=== PATIENT | male | born 1980 | race Hispanic/Latino ===

== ENCOUNTER 2020-07-24 02:43 | Inpatient (IN) | payer OTHER, SELFPAY ==
[2020-07-24] MEDS ORDERED: Boostrix 0.5 ML (Tdap) VIAL ONE (03:00)
[2020-07-24 03:06] LABS: #Basophils 0.1 thou/uL (0.0-0.2); #Eosinphils 0.1 thou/uL (0.0-0.7); #Lymphocytes 1.9 thou/uL (1.20-3.40); #Neutrophils 15.5 thou/uL (1.40-6.50); %Basophils 0.5 % (0.0-1.0); %Eosinophils 0.6 % (0.0-10.0); %Lymphocytes 10.3 % (21.0-51.0); %Monocytes 5.6 % (0.0-10.0); Hemoglobin 14.1 g/dL (14.0-18.0); Mean Corpuscular HGB CONC 33.9 g/dL (32.0-36.0); Mean Corpuscular Hemoglobin 31.8 pg (27.0-31.0); Mean Corpuscular Volume 93.7 fL (78.0-98.0); Mean Platelet Volume 11.4 fL (7.4-10.4); Platelet Count 175 thou/uL (130-400); RBC Distribution Width 12.4 % (11.5-14.5); Red Blood Cell (RBC) Count 4.44 mill/uL (4.70-6.10); White Blood Cell (WBC) Count 18.6 thou/uL (4.8-10.8)
[2020-07-24 03:08] LABS: Bilirubin Negative (Negative); Blood, Urine Large (Negative); Glucose, Urine (Dipstick) 500 mg/dL (Negative); Ketone, Urine Negative (Negative); Leukocyte Negative (Negative); Nitrite Negative (Negative); Protein, Urine (Dipstick) 30 mg/dL (Neg-Trace); Urobilinogen 0.2 mg/dL (Less than 2)
[2020-07-24 03:17] LABS: Squamous Epithelial 0-3 HPF (0-3); WBC/HPF 0-3 HPF (0-3)
[2020-07-24 03:17] LABS: ALT (SGPT) 273 U/L (8-55); AST (SGOT) 502 U/L (5-34); Albumin 3.6 g/dL (3.5-5.0); Alkaline Phosphatase 140 U/L (40-110); Anion Gap 21 mmol/L (10-20); BUN (Urea Nitrogen) 26 mg/dL (8.9-20.6); Bilirubin, Total 0.5 mg/dL (0.2-1.2); Calc. Creatinine Clearance 0 mL/min (70-130); Calcium 8.4 mg/dL (7.8-10.44); Carbon Dioxide 15 mmol/L (22-29); Chloride 104 mmol/L (98-107); Globulin 2.5 g/dL (2.4-3.5); Potassium 3.6 mmol/L (3.5-5.1); Protein, Total 6.1 g/dL (6.0-8.3); Sodium 136 mmol/L (136-145)
[2020-07-24 03:18] LABS: Bacteria/HPF 1+ HPF (None Seen); Clarity Clear (Clear)
[2020-07-24 03:26] LABS: Glucose 659 mg/dL (70-105)
[2020-07-24] MEDS ORDERED: Fentanyl 100 MCG/2 ML VIAL ONE (03:44)
[2020-07-24] MEDS ORDERED: Lidocaine 1% w/Epinephrine 1:100K 20 ML VIAL ONE (03:47)
[2020-07-24] MEDS ORDERED: Lidocaine 1% (PF) 30 ML VIAL ONE (05:06)
[2020-07-24] MEDS ORDERED: Electrolyte Replacement Protocol 1 EACH IVPB PRN (08:23)
[2020-07-24] MEDS ORDERED: NS 0.9% w/ 20 MEQ KCL 1,000 ML IV PRN ×2 (08:23)
[2020-07-24] MEDS ORDERED: D5 1/2 NS w/20 mEq KCL 1,000 ML IV PRN (08:23)
[2020-07-24] MEDS ORDERED: Dextrose 5 %-0.45 % NaCl 1,000 ML IV PRN (08:23)
[2020-07-24] MEDS ORDERED: Sodium Chloride 0.9% 1,000 ML IV PRN ×4 (08:23)
[2020-07-24] MEDS ORDERED: Sodium Chloride 0.9% 1,000 ML IV SCH (08:25)
[2020-07-24] MEDS ORDERED: Acetaminophen W/ Codeine 5 ML UDCUP PO PRN (08:25)
[2020-07-24] MEDS ORDERED: Ondansetron PF 4 MG/2 ML Vial IVP PRN (08:25)
[2020-07-24] MEDS ORDERED: Dextrose 5% in Water 1,000 ML IV PRN (08:25)
[2020-07-24] MEDS ORDERED: Cyclobenzaprine 10 MG TAB PO PRN (08:25)
[2020-07-24] MEDS ORDERED: Dextrose 50% Abboject 50 ML SYRINGE SLOW IVP PRN (08:25)
[2020-07-24] MEDS ORDERED: HumaLOG 300 UNITS/3 ML VIAL SC PRN ×2 (08:25)
[2020-07-24] MEDS ORDERED: Ondansetron ODT 4 MG TAB PO PRN (08:25)
[2020-07-24] MEDS ORDERED: Morphine 2 MG/ML VIAL SLOW IVP PRN (08:25)
[2020-07-24] MEDS ORDERED: hydrALAZINE 20 MG/ML VIAL SLOW IVP PRN (08:25)
[2020-07-24] MEDS ORDERED: HUMULIN R 100 UNITS in Sodium Chloride 0.9% 100 ML IVPB SCH (08:30)
[2020-07-24 08:35] LABS: Actual Bicarbonate (HCO3a) 16.6 mEq/L (22-28); Base Excess (BEa) -8.2 mEq/L (-2.0 to +3.0); CO2 Tension 32.4 mmHg (35.0-45.0); Calcium, Ionized (arterial) 1.21 mmol/L (1.12-1.30); Potassium - ABG Lab 4.45 mmol/L (3.70-5.30); pH, Arterial 7.33 (7.35-7.45)
[2020-07-24 08:36] LABS: Puncture Site RRA
[2020-07-24 09:49] LABS: Anion Gap 21 mmol/L (10-20); BUN (Urea Nitrogen) 27 mg/dL (8.9-20.6); Calc. Creatinine Clearance 0 mL/min (70-130); Calcium 9.5 mg/dL (7.8-10.44); Carbon Dioxide 18 mmol/L (22-29); Chloride 102 mmol/L (98-107); Phosphorus 4.5 mg/dL (2.3-4.7); Potassium 4.4 mmol/L (3.5-5.1); Sodium 137 mmol/L (136-145)
[2020-07-24] MEDS: Famotidine/PF 20 mg/2ml Vial SLOW IVP SCH ×2 (09:49→20:15)
[2020-07-24 10:00] LABS: Glucose 647 mg/dL (70-105)
[2020-07-24 10:38] VITALS: BMI 18.7
[2020-07-24] MEDS ORDERED: Magnesium 2 GM/50 ML 2 GM in Premix Bag 1 BAG IVPB SCH (10:45)
[2020-07-24] MEDS: Acetaminophen 650 MG/20.3 ML UDCUP PO SCH ×2 (12:00→18:49)
[2020-07-24 13:03] LABS: Anion Gap 19 mmol/L (10-20); BUN (Urea Nitrogen) 24 mg/dL (8.9-20.6); Calc. Creatinine Clearance 62 mL/min (70-130); Calcium 8.9 mg/dL (7.8-10.44); Carbon Dioxide 18 mmol/L (22-29); Chloride 109 mmol/L (98-107); Glucose 413 mg/dL (70-105); Sodium 142 mmol/L (136-145)
[2020-07-24 13:14] LABS: SARS-CoV-2 PCR by NAA Not Detected (NotDetected)
[2020-07-24] MEDS ORDERED: Iopamidol-370 76% 500 ML 1 ML ONE (13:33)
[2020-07-24] MEDS: Oxazepam 10 MG CAP PO SCH ×2 (14:18→22:25)
[2020-07-24 16:42] LABS: Anion Gap 14 mmol/L (10-20); BUN (Urea Nitrogen) 22 mg/dL (8.9-20.6); Calc. Creatinine Clearance 64 mL/min (70-130); Calcium 8.8 mg/dL (7.8-10.44); Carbon Dioxide 22 mmol/L (22-29); Chloride 111 mmol/L (98-107); Glucose 332 mg/dL (70-105); Potassium 4.5 mmol/L (3.5-5.1); Sodium 142 mmol/L (136-145)
[2020-07-24] MEDS: Clindamycin/D5W 900 MG in Premix Bag 1 BAG IVPB SCH (18:50)
[2020-07-24] MEDS: Chlorhexidine Gluconate 15 ML UDCUP SSP SCH (20:15)
[2020-07-25] MEDS: Acetaminophen 650 MG/20.3 ML UDCUP PO SCH ×5 (00:18→23:56)
[2020-07-25] MEDS: Clindamycin/D5W 900 MG in Premix Bag 1 BAG IVPB SCH ×3 (02:19→19:57)
[2020-07-25 03:17] LABS: #Basophils 0.1 thou/uL (0.0-0.2); #Eosinphils 0.2 thou/uL (0.0-0.7); #Lymphocytes 2.5 thou/uL (1.20-3.40); #Neutrophils 7.9 thou/uL (1.40-6.50); %Basophils 0.6 % (0.0-1.0); %Eosinophils 1.5 % (0.0-10.0); %Lymphocytes 21.5 % (21.0-51.0); %Monocytes 8.4 % (0.0-10.0); Hemoglobin 10.3 g/dL (14.0-18.0); Mean Corpuscular HGB CONC 34.7 g/dL (32.0-36.0); Mean Corpuscular Hemoglobin 32.6 pg (27.0-31.0); Mean Corpuscular Volume 93.8 fL (78.0-98.0); Mean Platelet Volume 11.2 fL (7.4-10.4); Platelet Count 120 thou/uL (130-400); RBC Distribution Width 12.8 % (11.5-14.5); Red Blood Cell (RBC) Count 3.16 mill/uL (4.70-6.10); White Blood Cell (WBC) Count 11.6 thou/uL (4.8-10.8)
[2020-07-25 03:38] LABS: Anion Gap 12 mmol/L (10-20); BUN (Urea Nitrogen) 16 mg/dL (8.9-20.6); Calc. Creatinine Clearance 113 mL/min (70-130); Calcium 7.9 mg/dL (7.8-10.44); Carbon Dioxide 19 mmol/L (22-29); Chloride 110 mmol/L (98-107); Glucose 158 mg/dL (70-105); Magnesium 1.9 mg/dL (1.6-2.6); Potassium 3.8 mmol/L (3.5-5.1); Sodium 137 mmol/L (136-145)
[2020-07-25 03:53] LABS: Phosphorus 2.9 mg/dL (2.3-4.7)
[2020-07-25] MEDS ORDERED: Magnesium 2 GM/50 ML 2 GM in Premix Bag 1 BAG IVPB SCH (06:15)
[2020-07-25] MEDS: Oxazepam 10 MG CAP PO SCH ×3 (06:28→23:58)
[2020-07-25] MEDS ORDERED: Insulin Regular 300 UNITS/3 ML VIAL SC PRN ×2 (06:36)
[2020-07-25] MEDS ORDERED: Lactated Ringer's 1,000 ML IV SCH (06:45)
[2020-07-25] MEDS ORDERED: Potassium Phosphate 30 MMOL, Magnesium Sulfate 2 GM in Sodium Chloride 0.9% 250 ML IVPB SCH (06:45)
[2020-07-25] MEDS ORDERED: Magnesium Sulfate 2 GM in Sodium Chloride 0.9% 100 ML IVPB SCH (07:00)
[2020-07-25] MEDS: Chlorhexidine Gluconate 15 ML UDCUP SSP SCH ×3 (08:06→21:38)
[2020-07-25] MEDS: Famotidine/PF 20 mg/2ml Vial SLOW IVP SCH ×2 (08:07→20:02)
[2020-07-25] MEDS ORDERED: Sodium Chloride 0.9% 1,000 ML IV PRN ×4 (08:45)
[2020-07-25] MEDS ORDERED: Dextrose 5 %-0.45 % NaCl 1,000 ML IV PRN (08:45)
[2020-07-25] MEDS ORDERED: NS 0.9% w/ 20 MEQ KCL 1,000 ML/1,000 ML BAG IV PRN (08:45)
[2020-07-25] MEDS ORDERED: HUMULIN R 100 UNITS in Sodium Chloride 0.9% 100 ML IVPB SCH (08:45)
[2020-07-25] MEDS: NS 0.9% w/ 20 MEQ KCL 1,000 ML/1,000 ML BAG IV PRN ×2 (10:32→19:57)
[2020-07-25] MEDS ORDERED: Lidocaine 1% w/Epinephrine 1:100K 20 ML VIAL ONE (14:46)
[2020-07-25] MEDS ORDERED: Hydrocortisone 1% Cream 30 GM TUBE ONE (14:46)
[2020-07-25] MEDS ORDERED: Chlorhexidine Gluconate 15 ML UDCUP SSP ONE ×2 (14:46→16:26)
[2020-07-25 15:23] LABS: Anion Gap 13 mmol/L (10-20); BUN (Urea Nitrogen) 12 mg/dL (8.9-20.6); Calc. Creatinine Clearance 91 mL/min (70-130); Calcium 8.3 mg/dL (7.8-10.44); Carbon Dioxide 22 mmol/L (22-29); Chloride 106 mmol/L (98-107); Glucose 223 mg/dL (70-105); Potassium 4.3 mmol/L (3.5-5.1); Sodium 137 mmol/L (136-145)
[2020-07-25] MEDS ORDERED: AFRIN NASAL MIST 15 ML BOT ONE ×2 (15:45→15:56)
[2020-07-25] MEDS ORDERED: HYDROmorphone 0.5 MG/0.5 ML SYRINGE ONE (15:56)
[2020-07-25] MEDS ORDERED: Lidocaine 2% Jelly 5 ML TUBE ONE (15:56)
[2020-07-25] MEDS ORDERED: Fentanyl 100 MCG/2 ML VIAL ONE (15:56)
[2020-07-25] MEDS ORDERED: Lidocaine 1% PF 5 ML VIAL ONE (16:05)
[2020-07-25] MEDS ORDERED: Rocuronium Bromide 10 MG/ML (10ML VIAL) ONE (16:05)
[2020-07-25] MEDS ORDERED: Ondansetron PF 4 MG/2 ML Vial ONE (16:05)
[2020-07-25] MEDS ORDERED: ePHEDrine Sulfate 50 MG/10 ML VIAL ONE (16:05)
[2020-07-25] MEDS ORDERED: PHENYLEPHRINE-NS 100 MCG/ML 10 ML SYRINGE ONE (16:05)
[2020-07-25] MEDS ORDERED: Glycopyrrolate 0.2 MG/ML 5 ML SYRINGE ONE (16:05)
[2020-07-25] MEDS ORDERED: Ketorolac Tromethamine 30 MG/ML VIAL ONE (16:05)
[2020-07-25] MEDS ORDERED: PROPOFOL 200 MG/20 ML VIAL ONE (16:05)
[2020-07-25] MEDS ORDERED: Clindamycin/D5W 900 mg/50 ml Premix Bag ONE (16:29)
[2020-07-25] MEDS ORDERED: Ondansetron HCl/PF 4 MG/2 ML Vial IVP PRN (18:45)
[2020-07-25] MEDS ORDERED: HYDROmorphone 2 MG/ML VIAL SLOW IVP PRN (18:45)
[2020-07-25] MEDS ORDERED: Promethazine HCl 25 MG/ML VIAL SLOW IVP PRN (18:45)
[2020-07-25] MEDS ORDERED: PACU-Morphine 4MG/ML VIAL SLOW IVP PRN (18:45)
[2020-07-25] MEDS ORDERED: Promethazine HCl 25 MG/ML VIAL IM PRN (18:45)
[2020-07-25] MEDS: D5 1/2 NS w/20 mEq KCL 1,000 ML IV PRN (23:56)
[2020-07-26] MEDS: Clindamycin/D5W 900 MG in Premix Bag 1 BAG IVPB SCH ×3 (02:18→18:11)
[2020-07-26 03:54] LABS: Anion Gap 9 mmol/L (10-20); BUN (Urea Nitrogen) 9 mg/dL (8.9-20.6); CK (CPK) 1798 U/L (30-200); Calc. Creatinine Clearance 100 mL/min (70-130); Calcium 7.8 mg/dL (7.8-10.44); Carbon Dioxide 22 mmol/L (22-29); Chloride 108 mmol/L (98-107); Glucose 167 mg/dL (70-105); Magnesium 1.9 mg/dL (1.6-2.6); Sodium 135 mmol/L (136-145)
[2020-07-26] MEDS: D5 1/2 NS w/20 mEq KCL 1,000 ML IV PRN (04:10)
[2020-07-26] MEDS: Acetaminophen 650 MG/20.3 ML UDCUP PO SCH ×4 (06:56→23:09)
[2020-07-26] MEDS: Oxazepam 10 MG CAP PO SCH ×3 (07:40→21:15)
[2020-07-26] MEDS: Famotidine/PF 20 mg/2ml Vial SLOW IVP SCH ×2 (07:57→20:51)
[2020-07-26] MEDS: Chlorhexidine Gluconate 15 ML UDCUP SSP SCH ×2 (07:57→20:51)
[2020-07-26 09:55] LABS: #Eosinphils 0.3 thou/uL (0.0-0.7); #Lymphocytes 1.7 thou/uL (1.20-3.40); #Monocytes 0.6 thou/uL (0.11-0.59); #Neutrophils 8.3 thou/uL (1.40-6.50); %Basophils 0.4 % (0.0-1.0); %Eosinophils 2.8 % (0.0-10.0); %Lymphocytes 15.6 % (21.0-51.0); %Monocytes 5.4 % (0.0-10.0); %Neutrophils 75.9 % (42.0-75.0); Hemoglobin 10.7 g/dL (14.0-18.0); Mean Corpuscular HGB CONC 33.1 g/dL (32.0-36.0); Mean Corpuscular Hemoglobin 31.6 pg (27.0-31.0); Mean Corpuscular Volume 95.6 fL (78.0-98.0); Mean Platelet Volume 10.3 fL (7.4-10.4); Platelet Count 119 thou/uL (130-400); RBC Distribution Width 12.5 % (11.5-14.5); Red Blood Cell (RBC) Count 3.38 mill/uL (4.70-6.10); White Blood Cell (WBC) Count 10.9 thou/uL (4.8-10.8)
[2020-07-26 10:00] LABS: Hemoglobin A1c 12.2 % (4.0-6.0)
[2020-07-26] MEDS: Insulin Regular 300 UNITS/3 ML VIAL SC PRN ×2 (18:48→21:16)
[2020-07-27] MEDS: Clindamycin/D5W 900 MG in Premix Bag 1 BAG IVPB SCH ×3 (01:17→17:37)
[2020-07-27 05:58] LABS: Anion Gap 11 mmol/L (10-20); BUN (Urea Nitrogen) 10 mg/dL (8.9-20.6); Calc. Creatinine Clearance 96 mL/min (70-130); Calcium 8.5 mg/dL (7.8-10.44); Carbon Dioxide 25 mmol/L (22-29); Chloride 99 mmol/L (98-107); Glucose 301 mg/dL (70-105); Potassium 4.2 mmol/L (3.5-5.1); Sodium 131 mmol/L (136-145)
[2020-07-27] MEDS: Acetaminophen 650 MG/20.3 ML UDCUP PO SCH ×4 (06:09→23:15)
[2020-07-27] MEDS: Oxazepam 10 MG CAP PO SCH ×3 (06:11→23:20)
[2020-07-27] MEDS: Insulin Regular 300 UNITS/3 ML VIAL SC PRN ×4 (06:17→23:12)
[2020-07-27] MEDS: Famotidine/PF 20 mg/2ml Vial SLOW IVP SCH ×2 (10:15→20:05)
[2020-07-27] MEDS: Chlorhexidine Gluconate 15 ML UDCUP SSP SCH ×2 (10:15→20:06)
[2020-07-27] MEDS: Senokot S 8.6-50 MG TAB PO SCH (22:37)
[2020-07-28] MEDS: Clindamycin/D5W 900 MG in Premix Bag 1 BAG IVPB SCH ×3 (03:14→17:33)
[2020-07-28 05:35] LABS: #Basophils 0.1 thou/uL (0.0-0.2); #Eosinphils 0.7 thou/uL (0.0-0.7); #Lymphocytes 1.9 thou/uL (1.20-3.40); #Monocytes 0.8 thou/uL (0.11-0.59); %Basophils 0.5 % (0.0-1.0); %Lymphocytes 15.1 % (21.0-51.0); %Monocytes 6.1 % (0.0-10.0); %Neutrophils 72.3 % (42.0-75.0); Hemoglobin 10.6 g/dL (14.0-18.0); Mean Corpuscular HGB CONC 33.7 g/dL (32.0-36.0); Mean Corpuscular Hemoglobin 31.7 pg (27.0-31.0); Mean Corpuscular Volume 94.3 fL (78.0-98.0); Mean Platelet Volume 10.1 fL (7.4-10.4); Platelet Count 180 thou/uL (130-400); RBC Distribution Width 12.4 % (11.5-14.5); Red Blood Cell (RBC) Count 3.35 mill/uL (4.70-6.10); White Blood Cell (WBC) Count 12.4 thou/uL (4.8-10.8)
[2020-07-28 06:03] LABS: Anion Gap 11 mmol/L (10-20); BUN (Urea Nitrogen) 8 mg/dL (8.9-20.6); CK (CPK) 461 U/L (30-200); Calc. Creatinine Clearance 102 mL/min (70-130); Calcium 8.8 mg/dL (7.8-10.44); Carbon Dioxide 25 mmol/L (22-29); Chloride 102 mmol/L (98-107); Glucose 192 mg/dL (70-105); Magnesium 1.8 mg/dL (1.6-2.6); Sodium 134 mmol/L (136-145)
[2020-07-28] MEDS: Acetaminophen 650 MG/20.3 ML UDCUP PO SCH ×3 (06:10→17:38)
[2020-07-28] MEDS: Oxazepam 10 MG CAP PO SCH ×2 (06:10→17:33)
[2020-07-28 06:12] LABS: Phosphorus 4.3 mg/dL (2.3-4.7)
[2020-07-28] MEDS: Insulin Regular 300 UNITS/3 ML VIAL SC PRN (06:15)
[2020-07-28] MEDS ORDERED: Polyethylene Glycol 3350 17 GM Packet PO SCH (09:00)
[2020-07-28] MEDS: Chlorhexidine Gluconate 15 ML UDCUP SSP SCH (10:21)
[2020-07-28] MEDS: Senokot S 8.6-50 MG TAB PO SCH (10:22)
[2020-07-28 11:31] VITALS: TEMP 98.2
[2020-07-28] MEDS: metFORMIN 500 MG TAB PO SCH ×2 (15:51→17:33)
[2020-07-28 16:28] VITALS: BP 121/81
[2020-07-28] MEDS ORDERED: Famotidine 20 MG TAB PO SCH (21:00)
== END 2020-07-28 18:07 | disposition home or self-care (01) | DRG 957 ==
LOC: EEVIPCON 02:43 → ERS 02:43 → IMCU/EMU 04:17 → SJJU 07-26 12:30
PROVIDERS: ADMIT Surgery; ATTEND Surgery
PROC: 0W9B00Z Drainage of Left Pleural Cavity with Drainage Device, Open Approach (ICD-10-PCS; 2020-07-24)
PROC: 0HQ3XZZ Repair Left Ear Skin, External Approach (ICD-10-PCS; 2020-07-24)
PROC: 0NSV04Z Reposition Left Mandible with Internal Fixation Device, Open Approach (ICD-10-PCS; principal; 2020-07-25)
DX: S02.602B Fracture of unspecified part of body of left mandible, initial encounter for open fracture (principal); S27.2XXA Traumatic hemopneumothorax, initial encounter; E11.10 Type 2 diabetes mellitus with ketoacidosis without coma; S06.309A Unspecified focal traumatic brain injury with loss of consciousness of unspecified duration, initial encounter; S22.42XA Multiple fractures of ribs, left side, initial encounter for closed fracture; S22.038A Other fracture of third thoracic vertebra, initial encounter for closed fracture; S22.048A Other fracture of fourth thoracic vertebra, initial encounter for closed fracture; S27.321A Contusion of lung, unilateral, initial encounter; S02.102A Fracture of base of skull, left side, initial encounter for closed fracture; T79.7XXA Traumatic subcutaneous emphysema, initial encounter; S27.0XXA Traumatic pneumothorax, initial encounter; S01.312A Laceration without foreign body of left ear, initial encounter; S42.002A Fracture of unspecified part of left clavicle, initial encounter for closed fracture; E83.39 Other disorders of phosphorus metabolism; E83.42 Hypomagnesemia; E87.6 Hypokalemia; V95.8XXA Other powered aircraft accidents injuring occupant, initial encounter
CPT/HCPCS: 12014; 36415; 36416; 36600; 70450; 70480; 70486; 71045; 71260; 72125; 74177; 80048; 80053; 81003; 81015; 82010; 82550; 82805; 83036; 83735; 84100; 85025; 86850; 86900; 86901; 90471; 90715; 94640; 96374; C1713; G0390; J0690; J1170; J1815; J1885; J2001; J2270; J2405; J2704; J3010; J3475; J3480; J3490; J7030; J7620; Q0162; Q9967; S0028; U0003; U0005